=== PATIENT | male | born 1985 | race Caucasian/White ===

== ENCOUNTER 2017-06-14 09:09 | Emergency (ER) | payer MEDICAID, OTHER ==
[2017-06-14 09:24] VITALS: RESP 18; TEMP 98; O2SAT 95
[2017-06-14] MEDS ORDERED: IBUPROFEN 600 MG TAB PO ONE ×2 (09:36→09:42)
[2017-06-14] MEDS ORDERED: IPRATROPIUM/ALBUTEROL 3 ML DEYVIAL ONE (09:36)
--- NOTE | 2017-06-14 09:37 | EDPHY ---
H & P Stated Complaint: c/o cough x 1 wk - causing sharp lower back pain rad to Time Seen by Provider: 06/14/17 09:11 HPI/ROS: CHIEF COMPLAINT: Low back pain, cough HISTORY OF PRESENT ILLNESS: This is a 32-year-old male with a history of tobacco abuse who presents with 2 complaints. The 1st is of midline low back pain in the region of his waist. This has been present since yesterday. He has a history of intermittent low back pain that usually resolves with anti- inflammatory medication. He has applied a 5% lidocaine patch; has not taken anything else for pain relief. He has not had trauma. He denies leg weakness, numbness, and bowel or bladder changes. He also reports a cough that has been present for the past week. It is nonproductive. He feels short of breath. He smokes 1 pack a day and has done so since age 14. He denies chest pain. He has no personal history of asthma REVIEW OF SYSTEMS: A ten point review of systems was performed and is negative with the exception of the items mentioned in the HPI. Past medical history: Tobacco abuse Social history: He works on an [employer]. He has 2 children. General Appearance: Alert. Vital signs reviewed. Blood pressure is 139/93, heart rate 103, respiratory rate 18, room air oxygen saturation 95%. Temperature 36.6degrees. Eyes: Pupils equal and round, no conjunctival injection, no discharge. Anicteric. ENT, Mouth: Mucous membranes are moist, no oropharyngeal erythema or edema. Neck: Nontender over the cervical spine. Respiratory: Lungs with diffuse wheezing. Cardiovascular: Regular rate and rhythm; no murmur, rub, or gallop. Gastrointestinal: Abdomen is soft and nontender, no masses or organomegaly, bowel sounds normal. Skin: Warm and dry, no rashes on exposed skin, normal color. Back: Mild tenderness to palpation over the mid lumbar spine, just to the left of the midline. No palpable deformities or step-offs. No CVA tenderness. Extremities: No lower extremity edema, no calf tenderness or swelling. Neurological: Alert and oriented. Moving all four extremities easily and equally. Strength is 5 over 5 bilaterally lower extremities with testing of all major motor groups. Sensation is intact to light touch over lower extremities. Negative straight leg raise. Deep tendon reflexes are 2+ in the ankle and knees bilaterally. Gait is normal. Psychiatric: Normal affect. - Personal History Current Tetanus Diphtheria and Acellular Pertussis (TDAP): Yes - Social History Smoking Status: Current every day smoker Constitutional: Initial Vital Signs Temperature (C) 36.6 C 06/14/17 09:17 Heart Rate 103 H 06/14/17 09:17 Respiratory Rate 18 06/14/17 09:17 Blood Pressure 139/93 H 06/14/17 09:17 O2 Sat (%) 95 06/14/17 09:17 O2 Delivery Mode Room Air Allergies/Adverse Reactions: No Known Allergies Allergy (Unverified 06/14/17 09:17) Home Medications: Medication Instructions Recorded Albuterol [Proventil Inhaler HFA 1 - 2 puffs IH Q4 #1 mdi 06/14/17 (*)] Cyclobenzaprine [Flexeril 10 MG 10 mg PO TID PRN #15 tab 06/14/17 (*)] Lidocaine 5% [Lidoderm 5% Patch 1 ea TD DAILY PRN #6 patch 06/14/17 (*)] Medical Decision Making ED Course/Re-evaluation: I suspect that his cough is a bronchitis. He is given a DuoNeb in the emergency department and will be reexamined after this treatment. His wheezing has improved after DuoNeb and he feels slightly better, however he continues with diffuse wheezing. No albuterol nebulizer also given. He is given a prescription for an albuterol nebulizer with instructions in its use. Smoking cessation was discussed with him and strongly recommended. I do not suspect pneumonia. He has a lidocaine patch in place that has been on for about 4 hours. It is providing some pain relief. He will be given ibuprofen in the ED. Be discharged with instructions to use ibuprofen and a muscle relaxant as needed. He is given a recommendation for primary care provider, as he does not have 1. Differential Diagnosis: Shortness of breath including but not limited to pulmonary infectious process, COPD, asthma, pulmonary embolus and congestive heart failure. Back pain including but not limited to muscular pain, herniated disc, spine fracture, intra-abdominal causes and urinary tract infection. - Data Points Medications Given: Discontinued Medications Albuterol/Ipratropium (Duoneb) 3 ml IH EDNOW ONE Stop: 06/14/17 09:43 Last Admin: 06/14/17 09:47 Dose: 3 ml Ibuprofen (Motrin) 600 mg PO EDNOW ONE Stop: 06/14/17 09:43 Last Admin: 06/14/17 09:47 Dose: 600 mg Departure - Departure Disposition: Home, Routine, Self-Care Clinical Impression: Bronchitis Low back pain Qualifiers: Chronicity: acute Back pain laterality: left Sciatica presence: without sciatica Qualified Code(s): M54.5 - Low back pain Condition: Good Instructions: Acute Bronchitis (ED), Acute Low Back Pain (ED), How to Use a Nebulizer (ED) Additional Instructions: I am referring you to Dr. Chau for primary care if needed. I recommend that you take ibuprofen, any brand, 650 mg every 6 hours while awake. Take this with food. This is an anti-inflammatory medication and will treat inflammation and pain. Take it regularly for the next 3-5 days in order to get significant benefit from it. I am prescribing lidocaine patches to use as needed. They can remain in place for 12 hours and then be removed for 12 hours. Follow the instructions carefully. I am also prescribing a muscle relaxant, Flexeril, to use if needed for pain and muscle spasm. You can not work or drive a car while taking this type of medication. You should be re-evaluated if you develop new weakness, loss of control of your bowels or your bladder, or have intractable severe pain. As we discussed, this type of back pain usually improves with time. Referrals: Tay Chau MD [Medical Doctor] - As per Instructions Stand Alone Forms: Work Excuse Prescriptions: Albuterol [Proventil Inhaler HFA (*)] 1 - 2 puffs IH Q4 #1 mdi Cyclobenzaprine [Flexeril 10 MG (*)] 10 mg PO TID PRN #15 tab PRN Reason: Spasms Lidocaine 5% [Lidoderm 5% Patch (*)] 1 ea TD DAILY PRN #6 patch PRN Reason: back pain
[2017-06-14] MEDS: IPRATROPIUM/ALBUTEROL 3 ML DEYVIAL IH ONE ×2 (09:47→10:12)
[2017-06-14] MEDS ORDERED: ALBUTEROL 3 ML DEYVIAL IH ONE (10:08)
[2017-06-14 10:29] VITALS: BP 124/67; PULSE 88
== END 2017-06-14 10:28 | disposition home or self-care (01) ==
LOC: CED 09:09
DX: J40 Bronchitis, not specified as acute or chronic (principal); M54.5 Low back pain; F17.200 Nicotine dependence, unspecified, uncomplicated